=== PATIENT | male | born 2005 | race Caucasian/White ===

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

== ENCOUNTER 2024-03-17 09:42 | Emergency (ER) | payer MEDICAID, SELFPAY ==
[2024-03-17 09:47] VITALS: BP 118/81; PULSE 93; RESP 15; TEMP 37.1; O2SAT 100
--- NOTE | 2024-03-17 10:00 | DI.RAD_ITS ---
Exam(s) XR CHEST 2V PA LATERAL EXAM: XR CHEST 2V PA LATERAL CLINICAL HISTORY: cough with sore throat TECHNIQUE: 2D digital imaging was performed. Two views. COMPARISON: No exams were available for comparison FINDINGS: HEART: Normal size. Aorta: Not dilated. PULMONARY VASCULATURE: Normal. MEDIASTINUM: Unremarkable. LUNGS: Clear. PLEURAL SPACE: No pleural effusion or pneumothorax. BONE:Unremarkable for age. SOFT TISSUES: Unremarkable. IMPRESSION: No acute abnormality. DATA REPOSITORY: RADIATION DOSE DELIVERED:
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
--- NOTE | 2024-03-17 10:15 | DI.RAD_ITS ---
Exam(s) XR ELBOW RT COMPLETE EXAM: XR ELBOW RT COMPLETE CLINICAL HISTORY: abrasion, swelling and redness. TECHNIQUE: 2D digital imaging was performed. Three views. COMPARISON: No exams were available for comparison FINDINGS: BONES: No acute fracture is present. No bony destructive lesion is seen. Screw noted in medial epico ndyle. JOINTS: The elbow is normally aligned. No joint effusion is seen. SOFT TISSUE: Normal. IMPRESSION: No acute abnormality. DATA REPOSITORY: RADIATION DOSE DELIVERED:
[2024-03-17] MEDS: LORazepam 0.5 MG TAB PO (10:19)
[2024-03-17] MEDS: Lidocaine/Prilocaine Cream 5 GM TUBE (10:21)
[2024-03-17] MEDS: Ondansetron 4 MG/2 ML VIAL IVP (10:52)
[2024-03-17] MEDS: Lactated Ringers 1,000 ML 1000 ML IV (10:52)
[2024-03-17] MEDS: Ketorolac 15 MG/ML VIAL IVP (10:53)
[2024-03-17 10:58] LABS: Abs Immature Grans 0.05 10^3/uL (0.0-0.06); Absolute Basophil Count 0.02 10^3/uL (0.0-0.2); Absolute Eosinophil Count 0.14 10^3/uL (0.0-0.7); Absolute Lymphocyte Count 0.63 10^3/uL (1.2-3.4); Absolute Monocyte Count 0.76 10^3/uL (0.1-0.8); Absolute Neutrophil Count 8.79 10^3/uL (1.2-6.7); Basophils % 0.2 %; Eosinophils % 1.3 %; HCT 41.4 % (40.0-50.0); HGB 13.8 g/dL (13.5-17.5); Immature Grans % 0.5 %; Lymphocytes % 6.1 %; MCH 29.6 pg (27.0-33.0); MCHC 33.3 % (32.0-36.0); MCV 89 fL (80-95); MPV 10.2 fL (8.0-11.0); Monocytes % 7.3 %; Neutrophils % 84.6 %; Platelet Count 189 10^3/uL (130-400); RBC 4.66 10^6/uL (4.36-5.78); RDW 13.4 % (11.8-14.1); RDW-SD 43.8 fL; WBC 10.39 10^3/uL (4.4-10.8)
[2024-03-17 11:00] LABS: ESR 3 mm/hr (0-15)
[2024-03-17 11:32] LABS: ALT 16 U/L (16-63); AST 17 U/L (15-37); Albumin 4.4 g/dL (3.4-5.0); Alkaline Phosphatase 106 U/L (46-116); BUN 14 mg/dL (7-18); Bilirubin, Total 0.71 mg/dL (0.2-1.0); C-Reactive Protein 2.22 mg/dL (<or=0.5); CREATININE 1.2 mg/dL (0.70-1.30); Calcium 9.2 mg/dL (8.5-10.1); Chloride 103 mmol/L (98-107); Estimated GFR 89.34 (mL/min/1.73m2); Glucose 85 mg/dL (74-106); Lipase 47 U/L (16-77); Potassium 4.4 mmol/L (3.5-5.1); Sodium 140 mmol/L (136-145); TSH (W/Ref FT4) 0.64 uIU/mL (0.52-4.13); Total Protein 7.6 g/dL (6.4-8.2)
[2024-03-17 12:01] VITALS: BP 116/80; PULSE 80; RESP 16; TEMP 36.9; O2SAT 98
[2024-03-17 12:15] LABS: *AMPHETAMINES SCREEN URINE Negative (Negative); *BARBITURATES SCREEN URINE Negative (Negative); *BENZODIAZEPINES SCREEN URINE Negative (Negative); Cannabinoids THC Positive (Negative); Cocaine Screen,Urine Negative (Negative); METHADONE URINE SCREEN Negative (Negative); OPIATES URINE SCREEN Negative (Negative)
[2024-03-17 12:16] LABS: Tricyclic Antidepressants Negative (Negative)
[2024-03-17] MEDS: Acetaminophen 325 MG TAB 650 MG PO (12:45)
[2024-03-17] MEDS: Cephalexin 500 MG CAP PO (12:45)
[2024-03-17] MEDS: Amoxicillin 875/Clav. 125 TAB PO (12:45)
[2024-03-17 13:29] VITALS: BP 108/62; PULSE 75; RESP 16; TEMP 36.6; O2SAT 96
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
--- NOTE | 2024-03-17 13:53 | NUR.NOTE ---
Referral faxed to [facility] for a reassessment of Elbow and for management of Abd pain within the week.
[2024-03-17 22:50] LABS: Hepatitis B Surface Ag Negative (Negative)
[2024-03-17 23:20] LABS: Hep B Core Antibody Negative (Negative); Hepatitis C Ab w Rflx HCV PCR Negative (Negative)
[2024-03-19 12:14] LABS: TB Interpretation Negative (Negative)
[2024-03-20 00:18] LABS: Anaplasma phagocytophilum Negative (Negative); B. miyamotoi PCR Negative (Negative); Babesia divergens/MO-1 Negative (Negative); Babesia duncani Negative (Negative); Babesia microti Negative (Negative); Ehrlichia chaffeensis Negative (Negative); Ehrlichia ewingii/canis Negative (Negative); Ehrlichia muris eauclairensis Negative (Negative)
[2024-03-20 14:00] LABS: Celiac gene pairs present? Yes
[2024-03-25 16:10] LABS: HIV-1/2 Ag & Ab Screen Negative (Negative)
[2024-03-25 16:11] LABS: Lyme Ab w Rflx to Lyme Confirm Negative (Negative); Syphilis Serology (RPR) Negative (Negative)
== END 2024-03-17 13:55 | disposition home or self-care (01) ==
PROVIDERS: Emergency Provider Nurse Practitioner Family
DX: J02.0 Streptococcal pharyngitis (principal); R11.2 Nausea with vomiting, unspecified; L53.9 Erythematous condition, unspecified; F17.210 Nicotine dependence, cigarettes, uncomplicated
CPT/HCPCS: 36415; 80053; 80307; 83690; 85652; 86704; 86803; 86816; 87040; 87340; 87389; 87491; 87591; 87637; 87798; 96360; 99284; 71046; 73080; 84443; 85025; 86140; 86480; 86592; 86618; J1885; J2405